=== PATIENT | female | born 1990 | race Caucasian/White ===

== ENCOUNTER 2018-10-18 13:40 | Outpatient (CLI) | payer OTHER | END 2018-10-18 17:00 | disposition home or self-care (01) | LOC: RX STUDY 13:40 | DX: N97.8 Female infertility of other origin (principal) ==

== ENCOUNTER 2019-08-07 23:47 | Inpatient (IN) | payer OTHER ==
[~2019-08-07] VITALS: Ht 165.1 cm; Wt 87.5 kg
[2019-08-08] MEDS ORDERED: PRENATAL TABLE1 EAC1 PO (00:07)
== END 2019-08-10 14:10 | DRG 807 ==
LOC: OB/GYN 23:47 → LDR 23:47 → OB/GYN 08-08 03:45
PROVIDERS: ADMIT Specialist; ATTEND Specialist
PROC: 10E0XZZ Delivery of Products of Conception, External Approach (ICD-10-PCS; principal; 2019-08-08)
PROC: 4A1HXFZ Monitoring of Products of Conception, Cardiac Rhythm, External Approach (ICD-10-PCS; 2019-08-08)
PROC: 0UQMXZZ Repair Vulva, External Approach (ICD-10-PCS; 2019-08-08)
DX: O71.82 Other specified trauma to perineum and vulva (principal); Z37.0 Single live birth; Z3A.39 39 weeks gestation of pregnancy